=== PATIENT | male | born 1990 | race Caucasian/White ===

== ENCOUNTER 2023-04-01 12:13 | Outpatient (CLI) | payer OTHER | END 2023-04-01 12:14 | disposition home or self-care (01) | LOC: CSHMRI 12:13 | PROVIDERS: ATTEND Family Medicine | DX: M54.2 Cervicalgia (principal); M54.6 Pain in thoracic spine; M54.50 Low back pain, unspecified; M48.9 Spondylopathy, unspecified | CPT/HCPCS: 72141; 72146; 72148 ==